=== PATIENT | male | born 1975 ===

== ENCOUNTER → 2021-12-17 | Outpatient (CLI) | payer SELFPAY | END | disposition home or self-care (01) | LOC: LAB SHORT 12:48 | DX: J02.9 Acute pharyngitis, unspecified (principal) | CPT/HCPCS: 87081 ==

== ENCOUNTER 2025-09-23 17:14 | Emergency (ER) | payer OTHER ==
[~2025-09-23] VITALS: Ht 182.9 cm; Wt 118.8 kg
[2025-09-23 17:29] VITALS: BP 152/91
== END 2025-09-23 19:49 | disposition home or self-care (01) ==
LOC: ER 17:14
DX: S43.402A Unspecified sprain of left shoulder joint, initial encounter (principal); W17.81XA Fall down embankment (hill), initial encounter
CPT/HCPCS: 73030; 99283-25